=== PATIENT | male | born 1955 | race Caucasian/White ===

== ENCOUNTER 2016-09-18 18:05 | Inpatient (IN) | payer OTHER ==
[~2016-09-18] VITALS: Ht 177.8 cm; Wt 97.2 kg
[~2016-09-18 18:05] MED LIST: ASPIR 8181 MG PO; GLIPIZIDE5 MG PO; LISINOPRIL10 MG PO
[2016-09-18 20:10] LABS: microscopic required? NO
[2016-09-18 20:15] LABS: PLATELET COUNT 231 x10^3mcL (130-400)
[2016-09-18 20:18] LABS: BASOPHIL % 2.4 % (0-2); RED CELL DISTRIBUTION WIDTH 15.3 % (11.5-14.5)
[2016-09-18 20:24] LABS: CALCIUM 9.5 mg/dL (8.5-10.1); CARBON DIOXIDE 27.7 mmol/L (21-32); CHLORIDE SERUM 102 mmol/L (98-107); CREATININE SERUM 1.1 mg/dL (0.7-1.3); GFR1 > 60 mL/min; GLUCOSE SERUM 125 mg/dL (74-106); POTASSIUM SERUM 4.2 mmol/L (3.5-5.1); SODIUM SERUM 137 mmol/L (136-145)
[2016-09-18 20:33] LABS: FREE T4 1.28 ng/dL (0.76-1.46); T4(THYROXINE) 8.4 ug/dL (4.7-13.3)
[2016-09-18 20:35] LABS: ALBUMIN 3.4 g/dL (3.4-5.0); ALKALINE PHOSPHATASE 84 U/L (46-116); ALT/SGPT 28 U/L (16-63); AST/SGOT 13 U/L (15-37); BILIRUBIN TOTAL 0.4 mg/dL (0.20-1.00); C REACTIVE PROTEIN 0.4 mg/dL (<=0.9); CK-MB 0.8 ng/mL (0-3.6); TOTAL PROTEIN, SERUM 7.5 g/dL (6.4-8.2)
[2016-09-18 20:44] LABS: UA SPECIFIC GRAVITY >=1.030 (1.005-1.035); urine erythrocyte NEGATIVE (NEGATIVE)
[2016-09-18 20:47] LABS: T3 TOTAL 1.02 ng/mL
[2016-09-18 21:03] LABS: ERYTHROCYTE SED RATE 22 mm/hr (0-20)
[2016-09-18] MEDS ORDERED: LIPITOR40 MG PO (23:19)
[2016-09-18] MEDS ORDERED: METFORMIN HCL1000 MG PO (23:19)
[2016-09-19 01:14] VITALS: BP 122/94
[2016-09-19 05:47] VITALS: BP 102/71
[2016-09-19 06:35] LABS: BASOPHIL % 0.6 % (0-2); PLATELET COUNT 235 x10^3mcL (130-400)
[2016-09-19 06:43] LABS: CALCIUM 9.3 mg/dL (8.5-10.1); CARBON DIOXIDE 31.8 mmol/L (21-32); CREATININE SERUM 1.4 mg/dL (0.7-1.3); POTASSIUM SERUM 4.7 mmol/L (3.5-5.1)
[2016-09-19 06:48] LABS: RED CELL DISTRIBUTION WIDTH 15.7 % (11.5-14.5)
[2016-09-19 10:14] VITALS: BP 127/89
[2016-09-19 18:02] VITALS: BP 127/89
[2016-09-19 21:22] VITALS: BP 111/84
[2016-09-20 06:46] VITALS: BP 123/80
[2016-09-20 06:56] LABS: BASOPHIL % 0.2 % (0-2); PLATELET COUNT 210 x10^3mcL (130-400)
[2016-09-20 07:18] LABS: RED CELL DISTRIBUTION WIDTH 15.5 % (11.5-14.5)
[2016-09-20 07:53] LABS: CALCIUM 8.6 mg/dL (8.5-10.1); CARBON DIOXIDE 25.8 mmol/L (21-32); CHLORIDE SERUM 102 mmol/L (98-107); CREATININE SERUM 1.1 mg/dL (0.7-1.3); GFR1 > 60 mL/min; GLUCOSE SERUM 121 mg/dL (74-106); MAGNESIUM 1.7 mg/dL (1.8-2.4); POTASSIUM SERUM 4.1 mmol/L (3.5-5.1); SODIUM SERUM 137 mmol/L (136-145)
[2016-09-20 09:18] VITALS: BP 141/105
[2016-09-20 14:03] VITALS: BP 128/83; BP 141/105
[2016-09-20] MEDS ORDERED: NORCO1 TA2 PO (14:04)
[2016-09-20 14:09] VITALS: BP 128/83
== END 2016-09-20 15:05 | disposition home or self-care (01) | DRG 228 ==
LOC: ED 18:05 → MU 09-19 00:23
PROVIDERS: Internal Medicine Pulmonary Disease; Specialist; Transplant Surgery; ADMIT Internal Medicine
PROC: 0WUF4JZ Supplement Abdominal Wall with Synthetic Substitute, Percutaneous Endoscopic Approach (ICD-10-PCS; principal; 2016-09-19 07:30)
DX: K42.9 Umbilical hernia without obstruction or gangrene (principal); I10 Essential (primary) hypertension; E11.9 Type 2 diabetes mellitus without complications; E78.5 Hyperlipidemia, unspecified; E66.9 Obesity, unspecified
CPT/HCPCS: 83880; 84439; C1781; J0690; J0696; J1170; J1885; J2270; J2405; J2543; J3010; J3370; J3490; Q0092; Q9967

== ENCOUNTER 2018-06-20 18:10 | Emergency (ER) | payer OTHER ==
[~2018-06-20] VITALS: Ht 180.3 cm; Wt 93.0 kg
[~2018-06-20 18:10] MED LIST changes: +LIPITOR40 MG PO; +METFORMIN HCL1000 MG PO; +NORCO1 TA2 PO
[2018-06-20 18:18] VITALS: Ht 180.3 cm; Wt 93.0 kg
[2018-06-20 23:12] LABS: BASOPHIL % 0.9 % (0-2); PLATELET COUNT 136 x10^3mcL (130-400); RED CELL DISTRIBUTION WIDTH 14.6 % (11.5-14.5)
[2018-06-20 23:23] LABS: CALCIUM 9.5 mg/dL (8.5-10.1); CARBON DIOXIDE 24.7 mmol/L (21-32); CHLORIDE SERUM 103 mmol/L (98-107); CREATININE SERUM 1.2 mg/dL (0.7-1.3); GFR1 > 60 mL/min; GLUCOSE SERUM 116 mg/dL (74-106); POTASSIUM SERUM 3.8 mmol/L (3.5-5.1); SODIUM SERUM 138 mmol/L (136-145)
[2018-06-20 23:28] LABS: ALBUMIN 3.7 g/dL (3.4-5.0); ALKALINE PHOSPHATASE 226 U/L (46-116); ALT/SGPT 115 U/L (16-63); AST/SGOT 136 U/L (15-37); TOTAL PROTEIN, SERUM 6.5 g/dL (6.4-8.2)
[2018-06-21 00:20] VITALS: BP 131/78
== END 2018-06-21 00:20 | disposition home or self-care (01) ==
LOC: ED 18:10
PROVIDERS: Emergency Medicine
DX: N43.3 Hydrocele, unspecified (principal); E78.00 Pure hypercholesterolemia, unspecified; I10 Essential (primary) hypertension; E11.9 Type 2 diabetes mellitus without complications
CPT/HCPCS: 36415; 83880; J3010; Q0092